=== PATIENT | female | born 1990 | race Caucasian/White ===

== ENCOUNTER 2016-10-09 15:11 | Emergency (ER) | payer OTHER ==
[2016-10-09 15:26] VITALS: BP 124/61
--- NOTE | 2016-10-09 15:32 | UC ---
Ear Complaint HPI - HPI Summary HPI Summary: Well this morning, with development of left ear ache this morning, sore throat, and off and on dizziness and lightheadedness. Not describing vertigo. No diplopia. Has sharp pain in the left ear and a sore throat. Has felt hoarse, no cough. No tinnitus. Headache in the temples to the occiput. No fever. No meds used. Here because of concern that she has an otitis, has a physical fitness test pending in 2 days. - History of Current Complaint Chief Complaint: UCGeneralIllness Stated Complaint: DIZZY SORE THROAT LEFT EAR Time Seen by Provider: 10/09/16 15:30 Hx Obtained From: Patient Hx Last Menstrual Period: 09/14/16 Onset/Duration: Gradual Onset, Lasting Hours - about 6 hours. Severity Initially: Mild Severity Currently: Mild Pain Intensity: 2 Pain Scale Used: 0-10 Numeric Aggravating Factors: Nothing Alleviating Factors: Nothing Associated Signs/Symptoms: Negative: Hearing Loss, Trauma to Ear Related History: Seasonal Allergies - uses loratidine prn - Allergies/Home Medications Allergies/Adverse Reactions: Allergies Allergy/AdvReac Type Severity Reaction Status Date / Time Morphine and Related Allergy Intermediate Hives Verified 10/09/16 15:26 Sulfa Drugs Allergy Intermediate Rash Verified 10/09/16 15:26 Home Medications: Home Medications SUMAtriptan TAB* [Imitrex TAB*] 25 mg PO SEE INSTRUCTIONS PRN 10/09/16 [History Confirmed 10/09/16] PMH/Surg Hx/FS Hx/Imm Hx Endocrine History Of: Denies: Diabetes, Thyroid Disease, Hyperthyroidism, Hypothyroidism, Dyslipidemia Cardiovascular History Of: Denies: Cardiac Disorders, Hypertension, Pacemaker/ICD, Myocardial Infarction , Congestive Heart Failure, Atrial Fibrillation, Deep Vein Thrombosis, Bleeding Disorders Respiratory History Of: Denies: COPD, Asthma, Bronchitis, Pneumonia, Pulmonary Embolism GI/ History Of: Denies: Gastroesophageal Reflux, Ulcer, Gastrointestinal Bleed, Gall Bladder Disease, Kidney Stones, Diverticulitis, Renal Disease, Urosepsis Neurological History Of: Reports: Migraine Psychological History Of: Reports: Anxiety, Depression - taking fluoxetine x 2 years with good effect. Cancer History Of: Denies: Lung Cancer, Colorectal Cancer, Breast Cancer, Prostate Cancer, Cervical Cancer Other History Of: Negative For: Anticoagulant Therapy - Surgical History Surgical History: None - Family History Known Family History: Positive: Diabetes - Maternal grandmother, Other - MS- sister - Social History Occupation: Employed Full-time Lives: With Family - boyfriend Alcohol Use: None Substance Use Type: None Smoking Status (MU): Never Smoked Tobacco When Did the Patient Quit Smoking/Using Tobacco: 2011 - Immunization History Most Recent Influenza Vaccination: none Review of Systems Constitutional: Fatigue Skin: Negative Eyes: Blurred Vision - mild ENT: Negative Respiratory: Negative Cardiovascular: Negative Gastrointestinal: Negative Genitourinary: Negative Motor: Negative Neurovascular: Negative Musculoskeletal: Negative Neurological: Headache - has a little bit of headache. Hx of migraine, does get a scotoma, maybe having a little bit. Psychological: Negative All Other Systems Reviewed And Are Negative: Yes Physical Exam Triage Information Reviewed: Yes Appearance: Well-Appearing, Well-Nourished Vital Signs: Initial Vital Signs Temp 98.2 F 10/09/16 15:22 Pulse 82 10/09/16 15:22 Resp 16 10/09/16 15:22 BP 124/61 10/09/16 15:22 Pulse Ox 100 10/09/16 15:22 Vital Signs Reviewed: Yes Eye Exam: Normal Eyes: Positive: Conjunctiva Clear ENT: Positive: Hearing grossly normal, Pharynx normal, TM dull - left serous fluid, no erythema. Neck: Positive: Supple, Nontender, No Lymphadenopathy Respiratory: Positive: Lungs clear, Normal breath sounds Cardiovascular: Positive: RRR, No Murmur Musculoskeletal Exam: Normal Neurological: Positive: Alert, Muscle Tone Normal, Other: - CN II-XII normal, without nystagmus. No pronator drift, no past pointing with finger to nose touching. Normal gait, negative Romberg. Psychological Exam: Normal Skin Exam: Normal Ear Complaint Course/Dx - Course Course Of Treatment: resume fluticasone to help with serous otitis media. - Differential Dx/Diagnosis Differential Diagnosis/HQI/PQRI: Cerumen Impaction, Otitis Media, URI Provider Diagnoses: serous otitis media/ uri Discharge - Discharge Plan Condition: Stable Disposition: HOME Patient Education Materials: Serous Otitis Media (ED) Forms: *Work Release Additional Instructions: As reviewed, you can try to ease the symptoms by resuming use of Flonase, which I suggest that you use twice today. Pseudoephedrine 30mg once or twice daily might help. Use ibuprofen 600mg for sore throat and headache. Follow up if symptoms persist.
== END 2016-10-09 16:09 | disposition home or self-care (01) ==
LOC: UCCORT 15:11
DX: H65.92 Unspecified nonsuppurative otitis media, left ear (principal); J06.9 Acute upper respiratory infection, unspecified; Z88.5 Allergy status to narcotic agent; Z88.2 Allergy status to sulfonamides
CPT/HCPCS: 99211; G0463

== ENCOUNTER 2016-11-23 11:38 | Emergency (ER) | payer OTHER ==
[2016-11-23 12:00] VITALS: BP 111/57
--- NOTE | 2016-11-23 12:23 | UC ---
Throat Pain/Nasal [place] HPI - HPI Summary HPI Summary: The patient comes in today for: 1. Sinus pressure, sore throat, otalgia, headache, nausea: Onset: 8 days ago. Palliative/provocative: Quality: Ache Region: Frontal headache. Severity:2/10 Time: Constant. Associated symptoms: Rhinitis: None. Cough: None. Upper tooth pain: None. "I don't have strep throat--it is not that bad." Fevers: None. * - History of Current Complaint Chief Complaint: UCRespiratory Stated Complaint: SINUS Time Seen by Provider: 11/23/16 12:18 Hx Obtained From: Patient Hx Last Menstrual Period: 11/11/16 - Allergies/Home Medications Allergies/Adverse Reactions: Allergies Allergy/AdvReac Type Severity Reaction Status Date / Time Morphine and Related Allergy Intermediate Hives Verified 11/23/16 11:49 Sulfa Drugs Allergy Intermediate Rash Verified 11/23/16 11:49 Home Medications: Home Medications Control Med 1 tab DAILY 11/23/16 [History Confirmed 11/23/16] Fluticasone NASAL SPRAY 50MCG* [Flonase NASAL SPRAY 50MCG*] 1 spray DAILY [History Confirmed 11/23/16] PMH/Surg Hx/FS Hx/Imm Hx Previously Healthy: No Endocrine History Of: Denies: Diabetes, Thyroid Disease, Hyperthyroidism, Hypothyroidism, Dyslipidemia Cardiovascular History Of: Denies: Cardiac Disorders, Hypertension, Pacemaker/ICD, Myocardial Infarction , Congestive Heart Failure, Atrial Fibrillation, Deep Vein Thrombosis, Bleeding Disorders Respiratory History Of: Denies: COPD, Asthma, Bronchitis, Pneumonia, Pulmonary Embolism GI/ History Of: Denies: Gastroesophageal Reflux, Ulcer, Gastrointestinal Bleed, Gall Bladder Disease, Kidney Stones, Diverticulitis, Renal Disease, Urosepsis Neurological History Of: Reports: Migraine Denies: TIA, CVA, Dementia, Seizures Psychological History Of: Reports: Anxiety, Depression - taking fluoxetine x 2 years with good effect. Cancer History Of: Denies: Lung Cancer, Colorectal Cancer, Breast Cancer, Prostate Cancer, Cervical Cancer Other History Of: Negative For: HIV, Hepatitis B, Hepatitis C, Anticoagulant Therapy - Surgical History Surgical History: Yes Surgery Procedure, Year, and Place: [place] teeth - Family History Known Family History: Positive: Diabetes - Maternal grandmother, Other - MS- sister Negative: Hypertension - Social History Occupation: Employed Full-time Alcohol Use: None Substance Use Type: None Smoking Status (MU): Never Smoked Tobacco When Did the Patient Quit Smoking/Using Tobacco: 2011 - Immunization History Most Recent Influenza Vaccination: NONE Most Recent Tetanus Shot: Unk Most Recent Pneumonia Vaccination: NONE Review of Systems Constitutional: Negative Skin: Negative Eyes: Negative ENT: Sore Throat Respiratory: Negative Cardiovascular: Negative Gastrointestinal: Negative Genitourinary: Negative All Other Systems Reviewed And Are Negative: Yes Physical Exam Triage Information Reviewed: Yes Appearance: Well-Appearing, No Pain Distress, Well-Nourished Vital Signs: Initial Vital Signs Temp 98.2 F 11/23/16 11:51 Pulse 74 11/23/16 11:51 Resp 18 11/23/16 11:51 BP 111/57 11/23/16 11:51 Pulse Ox 99 11/23/16 11:51 Vital Signs Reviewed: Yes Eyes: Positive: Conjunctiva Clear. Negative: Discharge ENT: Positive: Hearing grossly normal, Other: - Minimal sinus (frontal and maxillary sinus) pressure sensitivity.. Negative: Pharyngeal erythema, Nasal congestion, Nasal drainage, TM bulging, TM dull, TM red, Tonsillar swelling, Tonsillar exudate Dental: Negative: Gross Decay/Caries @, Dental Fracture @ Neck: Positive: Supple, Nontender, No Lymphadenopathy. Negative: Nuchal Rigidity Respiratory: Positive: Lungs clear, No respiratory distress, No accessory muscle use. Negative: Crackles, Wheezing Cardiovascular: Positive: RRR, No Murmur Abdomen Description: Positive: Nontender, No Organomegaly, Soft. Negative: Distended, Guarding Musculoskeletal: Positive: Strength Intact, ROM Intact Neurological: Positive: Alert, Muscle Tone Normal Psychological: Positive: Age Appropriate Behavior, Consolable Skin: Negative: rashes, breakdown Throat Pain/Nasal Course/Dx - Differential Dx/Diagnosis Differential Diagnosis/HQI/PQRI: Influenza, Pharyngitis, Sinusitis Provider Diagnoses: Viral syndrome. Viral pharyngitis. Headache Discharge - Discharge Plan Condition: Stable Disposition: HOME Patient Education Materials: Viral Syndrome (ED), Pharyngitis (ED), General Headache (ED) Referrals: No Primary Care Phys,NOPCP [Primary Care Provider] - 1 Week (Please see your primary care provider in about a week. If you don't have a primary care provider, please reference the included sheet of local provider. If you get worse, please be seen sooner.)
[2016-11-24 12:04] LABS: Manual Entry Verification MR; Mono Internal Control QC Line Present
== END 2016-11-23 13:05 | disposition home or self-care (01) ==
LOC: UCCORT 11:38
DX: B34.9 Viral infection, unspecified (principal); J02.9 Acute pharyngitis, unspecified; R51 Headache; F41.8 Other specified anxiety disorders; Z88.5 Allergy status to narcotic agent; Z88.2 Allergy status to sulfonamides; Z87.891 Personal history of nicotine dependence
CPT/HCPCS: 36415; 86308; 99212; G0463

== ENCOUNTER 2017-06-18 10:45 | Emergency (ER) | payer OTHER ==
[2017-06-18 11:03] VITALS: BP 114/72
--- NOTE | 2017-06-18 11:54 | UC ---
Ear Complaint HPI - HPI Summary HPI Summary: 26 year old female with ear pain. 1- c/o loose stool, and FUENTES x 2 weeks and now stool improved . no fever,. no abdominal pain 2- ear pain bilateral that started last week- worsened past 2 days. has had sinus surgery in the past [address] conway and was feeling well until now. no sinus pressure at this time. no fever. [ End ] - History of Current Complaint Chief Complaint: UCGI Stated Complaint: BILATERAL PAIN Time Seen by Provider: 06/18/17 11:19 Hx Obtained From: Patient Hx Last Menstrual Period: 05/28/17 Onset/Duration: Gradual Onset Severity Initially: Mild Severity Currently: Moderate Related History: Prior ENT Surgery - Allergies/Home Medications Allergies/Adverse Reactions: Allergies Allergy/AdvReac Type Severity Reaction Status Date / Time Morphine and Related Allergy Intermediate Hives Verified 06/18/17 10:57 Sulfa Drugs Allergy Intermediate Rash Verified 06/18/17 10:57 PMH/Surg Hx/FS Hx/Imm Hx Previously Healthy: Yes Other History Of: Negative For: HIV, Hepatitis B, Hepatitis C, Anticoagulant Therapy - Surgical History Surgical History: Yes Surgery Procedure, Year, and Place: [place] teeth. septum straightened - Family History Known Family History: Positive: Diabetes - Maternal grandmother, Other - MS- sister Negative: Hypertension - Social History Occupation: Employed Full-time Alcohol Use: None Substance Use Type: None Smoking Status (MU): Never Smoked Tobacco When Did the Patient Quit Smoking/Using Tobacco: 2011 - Immunization History Most Recent Influenza Vaccination: NONE Most Recent Tetanus Shot: Unk Most Recent Pneumonia Vaccination: NONE Review of Systems Constitutional: Fatigue ENT: Ear Ache, Nasal Discharge, Sinus Congestion Respiratory: Cough Gastrointestinal: Diarrhea, Nausea Neurological: Headache All Other Systems Reviewed And Are Negative: Yes Physical Exam Triage Information Reviewed: Yes Appearance: Well-Appearing, No Pain Distress, Well-Nourished Vital Signs: Initial Vital Signs Temp 98.3 F 06/18/17 10:58 Pulse 86 06/18/17 10:58 Resp 18 06/18/17 10:58 BP 114/72 06/18/17 10:58 Pulse Ox 100 06/18/17 10:58 Vital Signs Reviewed: Yes Eye Exam: Normal ENT Exam: Normal ENT: Positive: Nasal congestion, TM bulging - b/l serous no injection Dental Exam: Normal Neck exam: Normal Neck: Positive: 1 Respiratory Exam: Normal Respiratory: Positive: Chest non-tender, Lungs clear, Normal breath sounds, No respiratory distress Cardiovascular Exam: Normal Abdomen Description: Positive: Nontender, No Organomegaly, Soft. Negative: Bruit, CVA Tenderness (R), CVA Tenderness (L), Distended, Guarding Musculoskeletal Exam: Normal Neurological Exam: Normal Psychological Exam: Normal Skin Exam: Normal Ear Complaint Course/Dx - Course Course Of Treatment: viral illness. increase PO intake. supportive treatment. RTO if any concerns - Differential Dx/Diagnosis Differential Diagnosis/HQI/PQRI: Otitis Externa, Otitis Media, Perforated TM, TMJ Syndrome, URI Provider Diagnoses: URI / diarrhea Discharge - Discharge Plan Condition: Good Disposition: HOME Patient Education Materials: Otitis Media (ED), Acute Diarrhea (ED) Forms: *Work Release Referrals: No Primary Care Phys,NOPCP [Primary Care Provider] - 4 Days (if not improved )
== END 2017-06-18 12:05 | disposition home or self-care (01) ==
LOC: UCCORT 10:45
DX: J06.9 Acute upper respiratory infection, unspecified (principal); R19.7 Diarrhea, unspecified; Z88.5 Allergy status to narcotic agent; Z88.2 Allergy status to sulfonamides
CPT/HCPCS: 99212; G0463

== ENCOUNTER 2017-08-03 14:17 | Emergency (ER) | payer OTHER ==
[2017-08-03 14:35] VITALS: BP 112/63
--- NOTE | 2017-08-03 14:39 | UC ---
Respiratory Complaint HPI - HPI Summary HPI Summary: 26 y/o female presents to the urgent care c/o dry cough, nasal congestion, body aches, chills, FUENTES for the past 3 days. Pt states yellowish nasal discharge. Sore throat and FUENTES is 7/10. She has taking Dayquill PO to alleviate symptoms. She didn't have the flu vaccine last year. Pt states she had a little of confuion this morning at work. she couldn't concentrate. Pt denies fever, SOB, chest pain, abdominal pain, N/V/D - History of Current Complaint Chief Complaint: UCGeneralIllness Stated Complaint: COUGH SORE THROAT CONGESTION Time Seen by Provider: 08/03/17 14:38 Hx Obtained From: Patient Hx Last Menstrual Period: 07/21/17 Onset/Duration: Gradual Onset, Lasting Days - 3 days, Still Present Timing: Constant Severity Initially: Mild Severity Currently: Moderate Pain Intensity: 7 - FUENTES, sore throat Pain Scale Used: 0-10 Numeric Character: Cough: Nonproductive Aggravating Factors: Nothing Alleviating Factors: OTC Meds Associated Signs And Symptoms: Positive: Chills, URI, Nasal Congestion, Sinus Discomfort - Risk Factors Pulmonary Embolism Risk Factors: Negative Cardiac Risk Factors: Negative Pseudomonas Risk Factors: Negative Tuberculosis Risk Factors: Negative - Allergies/Home Medications Allergies/Adverse Reactions: Allergies Allergy/AdvReac Type Severity Reaction Status Date / Time Morphine and Related Allergy Intermediate Hives Verified 08/03/17 14:35 Sulfa Drugs Allergy Intermediate Rash Verified 08/03/17 14:35 Home Medications: Home Medications Desogestrel-Ethinyl Estradiol [Velivet 0.1/0.125/0.15 -0.025 mg] 1 hi PO DAILY 08/03/17 [History Confirmed 08/03/17] PMH/Surg Hx/FS Hx/Imm Hx Previously Healthy: Yes Respiratory History: Asthma Other History Of: Negative For: HIV, Hepatitis B, Hepatitis C, Anticoagulant Therapy - Surgical History Surgical History: Yes Surgery Procedure, Year, and Place: [place] teeth. septum straightened - Family History Known Family History: Positive: Diabetes - Maternal grandmother Negative: Hypertension Family History: MS- sister, dyslipidemia - Social History Occupation: Employed Full-time Lives: With Family Alcohol Use: None Substance Use Type: None Smoking Status (MU): Never Smoked Tobacco When Did the Patient Quit Smoking/Using Tobacco: 2011 - Immunization History Most Recent Influenza Vaccination: NONE Most Recent Tetanus Shot: Unk Most Recent Pneumonia Vaccination: NONE Review of Systems Constitutional: Chills, Other - body aches Skin: Negative Eyes: Negative ENT: Sore Throat, Nasal Discharge, Sinus Congestion Respiratory: Cough - dry Cardiovascular: Negative Gastrointestinal: Negative Genitourinary: Negative Motor: Negative Neurovascular: Negative Musculoskeletal: Negative Neurological: Headache Psychological: Negative Is Patient Immunocompromised?: No All Other Systems Reviewed And Are Negative: Yes Physical Exam Triage Information Reviewed: Yes Vital Signs: Initial Vital Signs Temp 98.5 F 08/03/17 14:31 Pulse 91 08/03/17 14:31 Resp 16 08/03/17 14:31 BP 112/63 08/03/17 14:31 Pulse Ox 99 08/03/17 14:31 - Additional Comments VITAL SIGNS: Reviewed. GENERAL: Patient is a well developed and nourished female who is sitting comfortable in the examining table. Patient is not in any acute respiratory distress. HEAD AND FACE: No signs of trauma. No ecchymosis, hematomas or skull depressions. No sinus tenderness. EYES: PERRLA, EOMI x 2, No injected conjunctiva, no nystagmus. No photophobia. EARS: Hearing grossly intact. Ear canals and tympanic membranes are within normal limits. Nose: edematous, erythematous nasal mucosa with yellowish nasal discharge MOUTH: Positive pharynx with erythema, no exudates, no palatal petechiae. NO B /L tonsillar enlargement with exudate. Uvula in midline. NECK: Supple, trachea is midline, Positive anterior cervical lymphadenopathy, no JVD, no carotid bruit, no c-spine tenderness, neck with full ROM. No meningeal signs, no Kernig's or brudzinskis signs. CHEST: Symmetric, no tenderness at palpation LUNGS: Clear to auscultation bilaterally. No wheezing or crackles. CVS: Regular rate and rhythm, S1 and S2 present, no murmurs or gallops appreciated. ABDOMEN: Soft, non-tender. No signs of distention. No rebound no guarding, and no masses palpated. Bowel sounds are normal. EXTREMITIES: FROM in all major joints, no edema, no cyanosis or clubbing. NEURO: Alert and oriented x 3. No acute neurological deficits. Speech is normal and follows commands. SKIN: Dry and warm UC Diagnostic Evaluation - Laboratory O2 Sat by Pulse Oximetry: 99 Respiratory Course/Dx - Course Course Of Treatment: 26 y/o female presents to the urgent care c/o dry cough, nasal congestion, body aches, chills, FUENTES for the past 3 days. Pt states yellowish nasal discharge. Sore throat and FUENTES is 7/10. She has taking Dayquill PO to alleviate symptoms. She didn't have the flu vaccine last year. Pt states she had a little of confuion this morning at work. she couldn't concentrate. Pt denies fever, SOB, chest pain, abdominal pain, N/V/D. Hx obtained. Pt with a pharygitis on examination. Pt declines Rapid strep since she can't handle the test. Influenza A&B ordered: result: negative. Rx ibuprofen PO to alleviates symptoms. Advised on hand washing. Pt advised to rest, increase fluid intake, eat well and avoid strenuous exercise. If symptoms do not improve or worsen advised to return to the urgent care or f/u with her PCP for further evaluation and treatment. Pt understood and agreed with plan of care. - Differential Dx/Diagnosis Differential Diagnosis/HQI/PQRI: Asthma, Bronchitis, Influenza, Laryngitis, Lower Resp Infection, Sinusitis Provider Diagnoses: 1- Acute viral pharyngitis Discharge - Discharge Plan Condition: Stable Disposition: HOME Prescriptions: Ibuprofen TAB* [Motrin TAB* 800 MG] 800 mg PO Q6H PRN #20 tab PRN Reason: Sore Throat Patient Education Materials: Pharyngitis (ED) Forms: *Work Release Referrals: [facility] [Outside] - If Needed Additional Instructions: 1-Please take ibuprofen PO q6-8hrs prn as instructed after meals to alleviate pain and swelling. Increase fluid intake, eat well, rest and avoid strenuous exercise 2-If symptoms do not improve or worsen please return to the urgent care or f/u with your PCP for further evaluation and treatment.
== END 2017-08-03 15:39 | disposition home or self-care (01) ==
LOC: UCCORT 14:17
DX: J45.909 Unspecified asthma, uncomplicated (principal); J11.1 Influenza due to unidentified influenza virus with other respiratory manifestations; J22 Unspecified acute lower respiratory infection
CPT/HCPCS: 87502; 99212; G0463

== ENCOUNTER 2017-08-11 13:00 | Emergency (ER) | payer OTHER ==
[2017-08-11 15:14] VITALS: BP 121/71
--- NOTE | 2017-08-11 15:27 | UC ---
Throat Pain/Nasal [place] HPI - HPI Summary HPI Summary: 26 y/o female presents to the urgent care c/o sinus congestion and sinus pain w / FUENTES for the past week. Pt reports symptoms started w/ nasal congestion w/ clear discharge. Now it is green w/ sore throat, +PND and B/L ear pain. Pain is 7/10. She has taking Ibuprofen PO to alleviate symptom. Pt denies dizziness , fever, SOB, cough , chest pain, abdominal pain, N/V/D - History of Current Complaint Chief Complaint: UCGeneralIllness Stated Complaint: SINUS EARS HEADACHE Time Seen by Provider: 08/11/17 15:06 Hx Obtained From: Patient Hx Last Menstrual Period: 07/31/17 Onset/Duration: Gradual Onset, Lasting Weeks - 1, Still Present, Worse Since - yesterday Severity: Moderate Pain Intensity: 7 Pain Scale Used: 0-10 Numeric Cough: None Associated Signs & Symptoms: Positive: Sinus Discomfort, Nasal Discharge. Negative: Fever - Epiglottits Risk Factors Epiglottis Risk Factors: Negative - Allergies/Home Medications Allergies/Adverse Reactions: Allergies Allergy/AdvReac Type Severity Reaction Status Date / Time MS Morphine and Related Allergy Intermediate Hives Verified 08/11/17 15:14 [Morphine and Related] MS Sulfa Drugs [Sulfa Drugs] Allergy Intermediate Rash Verified 08/11/17 15:14 PMH/Surg Hx/FS Hx/Imm Hx Previously Healthy: Yes Respiratory History: Asthma Psychological History: Depression Other History Of: Negative For: HIV, Hepatitis B, Hepatitis C, Anticoagulant Therapy - Surgical History Surgical History: Yes Surgery Procedure, Year, and Place: [place] teeth. septum straightened - Family History Known Family History: Positive: Diabetes - Maternal grandmother Negative: Hypertension Family History: MS- sister, dyslipidemia - Social History Occupation: Employed Full-time Lives: With Family Alcohol Use: None Substance Use Type: None Smoking Status (MU): Never Smoked Tobacco When Did the Patient Quit Smoking/Using Tobacco: 2011 - Immunization History Most Recent Influenza Vaccination: NONE Most Recent Tetanus Shot: Unk Most Recent Pneumonia Vaccination: NONE Review of Systems Constitutional: Negative Skin: Negative Eyes: Negative ENT: Ear Ache - B/L ear pain, Nasal Discharge, Sinus Congestion, Sinus Pain/ Tenderness Respiratory: Negative Cardiovascular: Negative Gastrointestinal: Negative Genitourinary: Negative Motor: Negative Neurovascular: Negative Musculoskeletal: Negative Neurological: Headache Psychological: Negative Is Patient Immunocompromised?: No All Other Systems Reviewed And Are Negative: Yes Physical Exam Triage Information Reviewed: Yes Vital Signs: Initial Vital Signs Temp 99.1 F 08/11/17 15:10 Pulse 81 08/11/17 15:10 Resp 16 08/11/17 15:10 BP 121/71 08/11/17 15:10 Pulse Ox 99 08/11/17 15:10 - Additional Comments Vitals: reviewed General: Well developed, well-nourished female patient with NAD. Head and face: Normocephalic and atraumatic, Positive tenderness over the frontal and maxillary sinuses.. Eyes: PERRLA, EOMI x 2. Normal conjunctiva. No eye discharge. ENT: Ears and TM with normal limits. Nose: with yellowish discharge and erythematous mucosa. Pharynx with erythema , no exudate. Neck: Supple, no JVD, no carotid bruits and no lymphadenopathy. Lungs: clear, no rales, no rhonchi, no wheezes. CVS: RRR, S1 and S2 present no murmurs or gallops appreciated. Abdomen: soft nontender with positive bowel sounds. Extremities: no edema noted. Neuro: WNL. Skin: warm and dry Throat Pain/Nasal Course/Dx - Course Course Of Treatment: 26 y/o female presents to the urgent care c/o sinus congestion and sinus pain w/ FUENTES for the past week. Pt reports symptoms started w / nasal congestion w/ clear discharge. Now it is green w/ sore throat, +PND and B/L ear pain. Pain is 7/10. She has taking Ibuprofen PO to alleviate symptom. Pt denies dizziness, fever, SOB, cough , chest pain, abdominal pain, N/ V/D. Hx obtained. Pt with sinusitis on examination. Pt with 1 week of symptoms getting worse. Pt Rx augmentin PO and flonase nasal spray. Naproxen PO for FUENTES. Discharge instructions explained to Pt. Advised to Return to the clinic or PCP if symptoms do not improve.Pt understood and agreed with plan of care. - Differential Dx/Diagnosis Differential Diagnosis/HQI/PQRI: Laryngitis, Pharyngitis, Sinusitis, Tonsillitis , URI Provider Diagnoses: 1- Acute bacterial sinusitis. 2- Headache Discharge - Discharge Plan Condition: Stable Disposition: HOME Prescriptions: Amoxicillin/Clavulanate TAB* [Augmentin TAB 875*] 875 mg PO BID #20 tab Fluticasone NASAL SPRAY 50MCG* [Flonase NASAL SPRAY 50MCG*] 2 spray BOTH NARES DAILY #1 btl Naproxen [Naproxen 500 mg] 500 mg PO Q8H PRN #20 tab PRN Reason: Pain Patient Education Materials: Sinusitis (ED) Referrals: [facility] [place] [facility]ERRAL [Outside] - 1 Week Additional Instructions: 1- Please increase fluid intake and rest. take full course of antibiotic to avoid resistance 2-Use Flonase as directed to help drain fluid. Also buy saline drops to clear sinuses 3-Take Naproxen PO as directed after meals to alleviates Headache 4-Return to the clinic or PCP if symptoms do not improve for further management and treatment
== END 2017-08-11 15:39 | disposition home or self-care (01) ==
LOC: UCCORT 13:00
DX: J01.90 Acute sinusitis, unspecified (principal); R51 Headache; J45.909 Unspecified asthma, uncomplicated; F32.9 Major depressive disorder, single episode, unspecified; Z88.5 Allergy status to narcotic agent; Z88.2 Allergy status to sulfonamides; Z87.891 Personal history of nicotine dependence
CPT/HCPCS: 99212; G0463

== ENCOUNTER 2018-08-30 07:46 | Emergency (ER) | payer OTHER ==
[2018-08-30 09:03] LABS: ABS Basophils 0 10^3/ul (0-0.2); ABS Eosinophils 0.1 10^3/ul (0-0.6); ABS Lymphocytes 1.5 10^3/ul (1.0-4.8); ABS Monocytes 0.4 10^3/ul (0-0.8); ABS Neutrophils 3.9 10^3/ul (1.5-7.7); ABS Nucleated RBC 0 10^3/ul; Eosinophil % 1.5 %; Hematocrit 39 % (35-47); Hemoglobin 12.6 g/dl (12.0-16.0); Lymphocyte % 25.3 %; Mean Corpuscular HGB Conc 33 g/dl (31-36); Mean Corpuscular Hemoglobin 28 pg (27-31); Mean Corpuscular Volume 85 fL (80-97); Mean Platelet Volume 7.8 fL (7.4-10.4); Nucleated Red Blood Cells % 0; Platelet Count 351 10^3/ul (150-450); Red Blood Count 4.56 10^6/ul (4.00-5.40); Red Cell Distribution Width 13 % (10.5-15)
[2018-08-30 09:09] LABS: INR 0.81 (0.77-1.02)
[2018-08-30 09:24] LABS: Albumin/Globulin Ratio 1.3 (1-3); BUN/Creatinine Ratio 18.8 (8-20); Calcium 9.1 mg/dL (8.6-10.3); EGFR African American 121.7 (>60); EGFR Non-African American 100.6 (>60); Globulin 3.1 g/dL (2-4); Potassium 3.9 mmol/L (3.5-5.0); Total Bilirubin 0.3 mg/dL (0.2-1.0); Total Protein 7.1 g/dL (6.4-8.9)
[2018-08-30 09:51] VITALS: BP 121/64
--- NOTE | 2018-08-30 10:35 | ED ---
Neurological HPI - HPI Summary HPI Summary: Patient has been an otherwise healthy 27-year-old female who presents to the ED with worsening condition of blurry vision, pins and needles to her bilateral lower and upper extremities as well as pins and needles to her or head. She endorses gait disturbance and balance problems. She has diffuse backaches and body aches which she has been seeing a chiropractor for the past 5 months without relief. She endorses worsening aches to the bilateral lower extremities and back compared to other parts of her body. She denies any recent illness. She does endorse a new symptom of R orbital FUENTES which has been present despite Tylenol x 2 days. She states despite receiving new glasses, she continues to have visual blurriness without blindness. Denies grayness to her vision. She denies any feelings of shock-like pain to the midline of her back but endorses aches to the back. Sister with hx of MS. She has had an MRI about 2 years ago for diffuse FUENTES, but negative. Hx of depression and anxiety. Tearful on exam. - History of Current Complaint Chief Complaint: EDGeneral Stated Complaint: GENERAL Time Seen by Provider: 08/30/18 08:00 Hx Obtained From: Patient Hx Last Menstrual Period: 07/31/17 Onset/Duration: Sudden Onset Timing: Constant Onset Severity: Mild Current Severity: Mild Seizure Severity: Mild Neurological Deficit Location: Generalized Headache Location: Diffuse (Right) - Right orbital Pain Intensity: 5 Pain Scale Used: 0-10 Numeric Character: Sharp, Numbness/Tingling, Paresthesia, Visual Changes, Other: - Not worst headache of life Associated Signs and Symptoms: Positive: Unsteady Gait, Visual Changes, Headache , Weakness. Negative: Memory Loss, Confusion, Agitation, Loss of Consciousness - Allergy/Home Medications Allergies/Adverse Reactions: Allergies Allergy/AdvReac Type Severity Reaction Status Date / Time morphine Allergy Hives Verified 08/30/18 07:58 Sulfa (Sulfonamide Allergy Rash Verified 08/30/18 07:58 Antibiotics) Home Medications: Home Medications Omeprazole 20 mg PO DAILY 08/30/18 [History Confirmed 08/30/18] PMH/Surg Hx/FS Hx/Imm Hx Previously Healthy: Yes Endocrine/Hematology History: Denies: Hx Anticoagulant Therapy, Hx Diabetes, Hx Thyroid Disease Cardiovascular History: Denies: Hx Congestive Heart Failure, Hx Deep Vein Thrombosis, Hx Hypertension , Hx Myocardial Infarction, Hx Pacemaker/ICD Respiratory History: Denies: Hx Asthma, Hx Chronic Obstructive Pulmonary Disease (COPD), Hx Lung Cancer, Hx Pneumonia, Hx Pulmonary Embolism GI History: Denies: Hx Gall Bladder Disease, Hx Gastrointestinal Bleed, Hx Ulcer, Hx Urosepsis History: Denies: Hx Kidney Stones, Hx Renal Disease Sensory History: Denies: Hx Hearing Aid Neurological History: Reports: Hx Migraine Denies: Hx Dementia, Hx Seizures, Hx Transient Ischemic Attacks (TIA) Psychiatric History: Reports: Hx Anxiety, Hx Depression - taking fluoxetine x 2 years with good effect. Denies: Hx Panic Disorder - Surgical History Surgery Procedure, Year, and Place: [place] teeth. septum straightened - Immunization History Hx Pertussis Vaccination: No Immunizations Up to Date: Yes Infectious Disease History: No Infectious Disease History: Denies: Traveled Outside the [place] in Last 30 Days - Family History Known Family History: Positive: Diabetes - Maternal grandmother, Other - MS- sister Negative: Hypertension Family History: MS- sister, dyslipidemia - Social History Occupation: Employed Full-time Lives: With Family Alcohol Use: None Hx Substance Use: No Substance Use Type: Reports: None Smoking Status (MU): Never Smoked Tobacco Review of Systems Constitutional: Negative Negative: Fever, Chills, Fatigue, Skin Diaphoresis Positive: Blurred Vision. Negative: Diplopia, Drainage, Erythema Negative: Sore Throat, Ear Ache Negative: Palpitations, Chest Pain Negative: Shortness Of Breath, Cough Positive: see HPI Positive: Paresthesia, Numbness Positive: Anxious All Other Systems Reviewed And Are Negative: Yes Physical Exam Triage Information Reviewed: Yes Vital Signs On Initial Exam: Initial Vitals Temp Pulse Resp BP Pulse Ox 98.6 F 99 17 135/82 98 08/30/18 07:54 08/30/18 07:54 08/30/18 07:54 08/30/18 07:54 08/30/18 07:54 Vital Signs Reviewed: Yes Appearance: Positive: Well-Appearing, Well-Nourished Skin: Positive: Warm, Skin Color Reflects Adequate Perfusion Head/Face: Positive: Normal Head/Face Inspection Eyes: Positive: EOMI, JUSTIN, Conjunctiva Clear Neck: Positive: Supple, No Lymphadenopathy Respiratory/Lung Sounds: Positive: Clear to Auscultation, Breath Sounds Present Cardiovascular: Positive: Normal, Pulses are Symmetrical in both Upper and Lower Extremities. Negative: Leg Edema Left, Leg Edema Right Musculoskeletal: Positive: Normal, Strength/ROM Intact Neurological: Positive: Sensory/Motor Intact, Alert, Oriented to Person Place, Time, CN Intact II-III, Reflexes Intact, Normal Gait, Heel to Toe - Intact, Finger to Nose - Intact, Facial Symmetry, Other - No pronator drift. Negative: Disoriented Psychiatric: Positive: Anxious AVPU Assessment: Alert - [place] Coma Scale Best Eye Response: 4 - Spontaneous Best Motor Response: 6 - Obeys Commands Best Verbal Response: 5 - Oriented Coma Scale Total: 15 Diagnostics - Vital Signs Vital Signs Temp Pulse Resp BP Pulse Ox 08/30/18 10:08 98.4 F 82 16 121/64 98 08/30/18 09:50 12 121/64 08/30/18 09:20 82 16 118/75 97 08/30/18 09:00 85 22 97 08/30/18 08:51 98 08/30/18 08:50 88 4 131/74 99 08/30/18 07:54 98.6 F 99 17 135/82 98 - Laboratory Lab Results: Lab Results 08/30/18 08/30/18 08/30/18 Range/Units 08:52 08:52 08:52 WBC 6.0 (3.5-10.8) 10^3/ul RBC 4.56 (4.00-5.40) 10^6/ul Hgb 12.6 (12.0-16.0) g/dl Hct 39 (35-47) % MCV 85 (80-97) fL MCH 28 (27-31) pg MCHC 33 (31-36) g/dl RDW 13 (10.5-15) % Plt Count 351 (150-450) 10^3/ul MPV 7.8 (7.4-10.4) fL Neut % (Auto) 64.9 % Lymph % (Auto) 25.3 % Conway % (Auto) 7.5 % Eos % (Auto) 1.5 % Baso % (Auto) 0.8 % Absolute Neuts (auto) 3.9 (1.5-7.7) 10^3/ul Absolute Lymphs (auto) 1.5 (1.0-4.8) 10^3/ul Absolute Monos (auto) 0.4 (0-0.8) 10^3/ul Absolute Eos (auto) 0.1 (0-0.6) 10^3/ul Absolute Basos (auto) 0 (0-0.2) 10^3/ul Absolute Nucleated RBC 0 10^3/ul Nucleated RBC % 0 INR (Anticoag Therapy) 0.81 (0.77-1.02) Sodium 137 (135-145) mmol/L Potassium 3.9 (3.5-5.0) mmol/L Chloride 104 (101-111) mmol/L Carbon Dioxide 25 (22-32) mmol/L Anion Gap 8 (2-11) mmol/L BUN 13 (6-24) mg/dL Creatinine 0.69 (0.51-0.95) mg/dL Est GFR ( Amer) 121.7 (>60) Est GFR (Non-Af Amer) 100.6 (>60) BUN/Creatinine Ratio 18.8 (8-20) Glucose 95 (70-100) mg/dL Lactic Acid (0.5-2.0) mmol/L Calcium 9.1 (8.6-10.3) mg/dL Total Bilirubin 0.30 (0.2-1.0) mg/dL AST 16 (13-39) U/L ALT 21 (7-52) U/L Alkaline Phosphatase 55 (34-104) U/L Troponin I 0.00 (<0.04) ng/mL Total Protein 7.1 (6.4-8.9) g/dL Albumin 4.0 (3.2-5.2) g/dL Globulin 3.1 (2-4) g/dL Albumin/Globulin Ratio 1.3 (1-3) Vitamin B12 (180-914) pg/mL 08/30/18 08/30/18 Range/Units 08:52 08:52 WBC (3.5-10.8) 10^3/ul RBC (4.00-5.40) 10^6/ul Hgb (12.0-16.0) g/dl Hct (35-47) % MCV (80-97) fL MCH (27-31) pg MCHC (31-36) g/dl RDW (10.5-15) % Plt Count (150-450) 10^3/ul MPV (7.4-10.4) fL Neut % (Auto) % Lymph % (Auto) % Conway % (Auto) % Eos % (Auto) % Baso % (Auto) % Absolute Neuts (auto) (1.5-7.7) 10^3/ul Absolute Lymphs (auto) (1.0-4.8) 10^3/ul Absolute Monos (auto) (0-0.8) 10^3/ul Absolute Eos (auto) (0-0.6) 10^3/ul Absolute Basos (auto) (0-0.2) 10^3/ul Absolute Nucleated RBC 10^3/ul Nucleated RBC % INR (Anticoag Therapy) (0.77-1.02) Sodium (135-145) mmol/L Potassium (3.5-5.0) mmol/L Chloride (101-111) mmol/L Carbon Dioxide (22-32) mmol/L Anion Gap (2-11) mmol/L BUN (6-24) mg/dL Creatinine (0.51-0.95) mg/dL Est GFR ( Amer) (>60) Est GFR (Non-Af Amer) (>60) BUN/Creatinine Ratio (8-20) Glucose (70-100) mg/dL Lactic Acid 1.1 (0.5-2.0) mmol/L Calcium (8.6-10.3) mg/dL Total Bilirubin (0.2-1.0) mg/dL AST (13-39) U/L ALT (7-52) U/L Alkaline Phosphatase (34-104) U/L Troponin I (<0.04) ng/mL Total Protein (6.4-8.9) g/dL Albumin (3.2-5.2) g/dL Globulin (2-4) g/dL Albumin/Globulin Ratio (1-3) Vitamin B12 247 (180-914) pg/mL Result Diagrams: 08/30/18 08:52 08/30/18 08:52 Lab Statement: Any lab studies that have been ordered have been reviewed, and results considered in the medical decision making process. Course/Dx - Course Course Of Treatment: Patient has been an otherwise healthy 27-year-old female who presents to the ED with worsening condition of blurry vision, pins and needles to her bilateral lower and upper extremities as well as pins and needles to her or head. She endorses gait disturbance and balance problems. She has diffuse backaches and body aches which she has been seeing a chiropractor for the past 5 months without relief. She endorses worsening aches to the bilateral lower extremities and back compared to other parts of her body. She denies any recent illness. She does endorse a new symptom of R orbital FUENTES which has been present despite Tylenol x 2 days. She states despite receiving new glasses, she continues to have visual blurriness without blindness. Denies grayness to her vision. She denies any feelings of shock- like pain to the midline of her back but endorses aches to the back ( negative Lhermittes sign). 4.On physical examination, there is no obvious gait imbalance or disturbance noted. No slurred speech. No dysphagia, dysarthria or any respiratory dysfunction. Reflexes intact. Good strength bilaterally. Patchy areas of increased pain with light touch perception in bilateral lower and upper extremities. Neuro exam completed and WNL. Neuro exam shows noopthalmoplegia . EOMI, SILVANA. No nystagmus bilaterally. Finger to nose intact. Heel to yuan intact. No pronator drift bilaterally, no asymmetries to pin prick cold or light touch. There is no evidence of neglect to double simultaneous stimulation of touch to the bilateral upper and lower arms. Discussed case with Dr. Lino who recommends further evaluation as an outpatient and may need further workup). As this patient has had symptoms intermittently x 6-12 mos (except for pain behind R eye and diffuse pins and needles sensation), this unlikely for a workup at this time to assess MS. Vitamin B 12 obtained and is WNL. Other labs all WNL. EKG shows NSR. I have discussed all results with patient. She is tearful and states she wants answers. I have agreed to discuss this case further with Dr. Ball as patient does not currently have a PCP. Called Dr. Ball at 10am to make aware that patient may be calling for a f/u in the [facility] clinic. I have also offered to patient medications, note for work, all to which she declines. She states she will f/u in the clinic. She is stable on discharge. - Differential Dx Differential Diagnoses Neuro: Positive: Other - Anxiety, paresthesias, MS, orbital headache - Diagnoses Provider Diagnoses: Paresthesia Discharge - Sign-Out/Discharge Documenting (check all that apply): Patient Departure Patient Received Moderate/Deep Sedation with Procedure: No - Discharge Plan Condition: Stable Disposition: HOME Patient Education Materials: Paresthesia (ED) Forms: *Work Release Referrals: [facility] [Outside] No Primary Care Phys,NOPCP [Primary Care Provider] - Additional Instructions: Please follow up with Dr. Ball or Dr. Crabtree in our [facility] group - Billing Disposition and Condition Condition: STABLE Disposition: Home
== END 2018-08-30 10:08 | disposition home or self-care (01) ==
LOC: ED 07:46
DX: R20.2 Paresthesia of skin (principal); F32.9 Major depressive disorder, single episode, unspecified; F41.9 Anxiety disorder, unspecified
CPT/HCPCS: 36415; 80053; 82607; 83605; 84484; 85025; 85610; 93005; 99282

== ENCOUNTER 2018-10-13 08:10 | Emergency (ER) | payer BC ==
[2018-10-13] MEDS ORDERED: Ondansetron INJ* 2 MG/ML VIAL IV ONE (08:35)
[2018-10-13] MEDS ORDERED: Pantoprazole IV* 40 MG IV ONE (08:35)
--- NOTE | 2018-10-13 08:37 | ED ---
GI/ HPI - HPI Summary HPI Summary: Pt is a 27 y/o F presenting to the ED with a chief complaint of abd pain. She reports bright red blood in her stool this morning, with associated nausea, subjective fever, shakey, and abd pain in the epigastric region described as burning. She denies hemorrhoids or straining when having a bowel movement. She has a hx of PUD, but these sx are not c/w her nml ulcer sx. - History of Current Complaint Chief Complaint: EDGIBleed Time Seen by Provider: 10/13/18 08:26 Stated Complaint: BLOOD IN STOOL/HAS AN ULSER PER PT Hx Obtained From: Patient Hx Last Menstrual Period: 07/31/17 Onset/Duration: Started Hours Ago, Still Present Timing: Constant, Lasting Hours Severity: Moderate Current Severity: Moderate Pain Intensity: 6 Location of Pain: Epigastric Pain Characteristics: Burning Associated Signs and Symptoms: Positive: Nausea, Bright Red Blood w/Stool, Fever , Abdominal Pain, Other: - shakey. Negative: External Hemorrhoids Aggravating Factor(s): Nothing Alleviating Factor(s): Nothing - Allergy/Home Medications Allergies/Adverse Reactions: Allergies Allergy/AdvReac Type Severity Reaction Status Date / Time morphine Allergy Hives Verified 10/13/18 08:24 Sulfa (Sulfonamide Allergy Rash Verified 10/13/18 08:24 Antibiotics) PMH/Surg Hx/FS Hx/Imm Hx Previously Healthy: Yes Endocrine/Hematology History: Denies: Hx Anticoagulant Therapy, Hx Diabetes, Hx Thyroid Disease Cardiovascular History: Denies: Hx Congestive Heart Failure, Hx Deep Vein Thrombosis, Hx Hypertension , Hx Myocardial Infarction, Hx Pacemaker/ICD Respiratory History: Denies: Hx Asthma, Hx Chronic Obstructive Pulmonary Disease (COPD), Hx Lung Cancer, Hx Pneumonia, Hx Pulmonary Embolism GI History: Reports: Hx Ulcer Denies: Hx Gall Bladder Disease, Hx Gastrointestinal Bleed, Hx Urosepsis History: Denies: Hx Kidney Stones, Hx Renal Disease Sensory History: Denies: Hx Hearing Aid Neurological History: Reports: Hx Migraine Denies: Hx Dementia, Hx Seizures, Hx Transient Ischemic Attacks (TIA) Psychiatric History: Reports: Hx Anxiety, Hx Depression - taking fluoxetine x 2 years with good effect., Hx Panic Disorder - ANXIETY - Surgical History Surgery Procedure, Year, and Place: [place] teeth. septum straightened Infectious Disease History: No Infectious Disease History: Denies: Traveled Outside the [place] in Last 30 Days - Family History Known Family History: Positive: Diabetes - Maternal grandmother, Other - MS- sister Negative: Hypertension Family History: MS- sister, dyslipidemia - Social History Alcohol Use: None Hx Substance Use: No Substance Use Type: Reports: None Hx Tobacco Use: No Smoking Status (MU): Never Smoked Tobacco Review of Systems Positive: Fever, Other - shakey Gastrointestinal: Negative - hemorrhoids, straining with bowel movement Positive: Abdominal Pain, Nausea, Other - bright red blood in stool All Other Systems Reviewed And Are Negative: Yes Physical Exam - Summary Physical Exam Summary: VITAL SIGNS: Reviewed. GENERAL: Patient is a well-developed and nourished female who is lying comfortable in the stretcher. Patient is not in any acute respiratory distress. HEAD AND FACE: Normocephalic and atraumatic. EYES: PERRLA, EOMI x 2, No injected conjunctiva. EARS: Hearing grossly intact. Ear canals and tympanic membranes are WNL. MOUTH: Oropharynx within normal limits. NECK: Supple, trachea is midline, no adenopathy, no JVD. CHEST: Symmetric, no tenderness at palpation LUNGS: Clear to auscultation bilaterally. No wheezing or crackles. CVS: RRR, S1 and S2 present, no murmurs or gallops appreciated. ABDOMEN: Epigastric tenderness. No signs of distention. Positive bowel sounds. No rebound no guarding, and no masses palpated. No abdominal bruit or pulsations. EXTREMITIES: FROM in all major joints, no edema, no cyanosis or clubbing. NEURO: Alert and oriented x 3. No acute neurological deficits. Speech is normal. SKIN: Dry and warm Rectal: No hemorrhoids, gross blood, or melena. Triage Information Reviewed: Yes Vital Signs On Initial Exam: Initial Vitals Temp Pulse Resp BP Pulse Ox 99.6 F 114 17 118/93 100 10/13/18 08:20 10/13/18 08:20 10/13/18 08:20 10/13/18 08:20 10/13/18 08:20 Vital Signs Reviewed: Yes Diagnostics - Vital Signs Vital Signs Temp Pulse Resp BP Pulse Ox 10/13/18 08:20 99.6 F 114 17 118/93 100 - Laboratory Result Diagrams: 10/13/18 08:45 10/13/18 08:45 Lab Statement: Any lab studies that have been ordered have been reviewed, and results considered in the medical decision making process. Re-Evaluation - Re-Evaluation 1st re-eval Re-Evaluation Time: 10:40 Change: Improved Comment: The pt is doing much better and will be d/c'ed with a dx of epigastric pain and rectal bleeding. GIGU Course/Dx - Course Assessment/Plan: Patient is a 27-year-old female who presents to the emergency department with a chief complaint of epigastric burning and a rectal bleed. Rectal exam shows no gross blood or melena. Occult blood test is negative. Blood work without any significant abnormality. In the ED course, the patient was given IV fluids, Zofran for nausea and Protonix for the epigastric pain. After these medications were given the patients symptoms have significantly improved. The patient reports that her symptoms are resolved. She was instructed to return to the emergency department if she develops any other symptoms. The patient understands and agrees. - Diagnoses Provider Diagnoses: Epigastric pain, Rectal bleeding Discharge - Sign-Out/Discharge Documenting (check all that apply): Patient Departure Patient Received Moderate/Deep Sedation with Procedure: No - Discharge Plan Condition: Stable Disposition: HOME Prescriptions: Pantoprazole TAB * [Protonix TAB*] 40 mg PO DAILY #14 tab Referrals: Priscilla Crabtree DO [Primary Care Provider] - Additional Instructions: Please follow up with your GI doctor within the next 3 days. Return to the ED with any new or worsening symptoms. - Billing Disposition and Condition Condition: STABLE Disposition: Home - Attestation Statements Document Initiated by Harriettibe: Yes Documenting Scribe: Veda Cooley Provider For Whom Nixon is Documenting (Include Credential): Ras Reynolds MD. Scribe Attestation: Veda Vernon scribed for Ras Reynolds MD. on 10/13/18 at 1740. Scribe Documentation Reviewed: Yes Provider Attestation: The documentation as recorded by the Veda aguillon accurately reflects the service I personally performed and the decisions made by , Ras Reynolds MD. Status of Scribe Document: Viewed
--- OUTSIDE RECORDS SUMMARY | 2018-10-13 08:58 | XMS REPORT | Continuity of Care Document ---
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 [facility] Primary Care Physician Unavailable Payers Date Identification Numbers Payment Provider Subscriber Effective: 2018 Policy Number: [id number] [employer] Rebecca Longo PayID: [id number] [address] [address] [place] [address] Expires: 2016 Policy Number: [id number] Medicaid Rebecca Longo Group Name: 1 1 [address] PayID: [id number] [place] [address] Expires: 2018 Policy Number: [id number] Yobany Rebecca Longo Group Number: [id number] [address] PayID: [id number] [place] [address] Advance Directives Description No Information Available Problems Date Description Provider Status Onset: 11/29/2015 Migraine Waldo Lino M.D. 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 [employer] ETOH Use Denies alcohol use Recreational Drug Use Denies Drug Use Tobacco Use Start: Unknown End: Patient is a former smoker Unknown Smoking Status Reviewed: 09/27/18 Patient is a former smoker Exercise Type/Frequency Does not exercise Allergies, Adverse Reactions, Alerts Date Description Reaction Status Severity Comments 11/23/2015 Sulfa Active 11/23/2015 Morphine Active 09/16/2018 Ibuprofen Active stomach ulcer Medications Medication Date Status Form Strength Qnty SIG Indications Ordering Provider Cyanocobalamin 09/27 Active Solution 1000mcg/M 1ml 1000 mcg D51.9 L intramuscular Senner, monthly x 2 DO months Nitrofurantoin 09/27 Active Capsules 100mg 10cap take one twice R30.0 Priscilla Macrocrystal s a day [place], DO Propranolol HCL 09/16 Active Tablets 10mg 240ta Not Taking--1 G43.109 bs by mouth twice [place], a day for 1 M.D. week then 2 twice a day for 1 week then 3 twice a day for 1 week then 4 twice a day Cyanocobalamin 08/30 Active Solution 1000mcg/M 1ml 1000 mcg D51.9 L intramuscular [place], weekly x 4 DO weeks Velivet Active Tablets 0.1/0.125 as directed Unknown /0000 /0.15 -0.025 mg Fluoxetine HCL Active Tablets 60mg take one Unknown /0000 tablet by mouth one time daily [facility] Active Capsules 20mg one time daily Unknown Esomeprazole /0000 DR Magnesium Tums Active Chewtabs 500mg 2 tabs by Unknown /0000 mouth twice daily Acetaminophen Active Tablets 500mg 4 tabs by Unknown Extra Strength /0000 mouth every 8 hours as needed for pain or fever. Amerge Active Tablets 1mg take 1 at Unknown /0000 start of headache, november repeat x1 in 2 hours, no more than 2 in 24 hours, 2 times a week Naratriptan HCL 09/20 Hx Tablets 1mg 9tabs 1 po prn migraine, november [place], - repeat once M.D. 09/20 after 4 hours if no relief, no more than 2 days a week Relpax 09/20 Hx Tablets 40mg 10tab 1 tab by mouth G43.109 s twice a day as [place], - needed max 2 M.D. 03/17 days per week Almotriptan 09/17 Hx Tablets 6.25mg 9tabs 1 po bid prn migraine max 2 [place], - days a week M.D. 03/11 /2019 Relpax 09/16 Hx Tablets 40mg 10tab 1 tab by mouth G43.109 Waldo S. /2018 s twice a day as [place], - needed max 2 M.D. 09/17 days per week Onetouch Delica 09/02 Hx Misc 30G 100un test sugar Priscilla Lancets Fine its daily as [place], 30G - needed for DO 09/15 symptoms of hypoglycemia Freestyle 09/02 Hx Strips 25uni test sugar as Priscilla Precision Jair ts needed daily [place], Blood Glucose - for symptoms DO Test Strips 09/15 hypoglycemia Amitriptyline 11/28 Hx Tablets 10mg 60tab take 1 tablets G43.109 Waldo S. HCL s every night at [place], - bedtime for 2 M.D. 02/19 weeks take 2 tablets at bedtime Fluoxetine HCL 00 Hx Capsules 40mg 1 by mouth Unknown /0000 every day - 02/20 Sumatriptan Hx Tablets 100mg 1 tab twice a Unknown Succinate /0000 day max 2 days - a week 11/27 Vitamin D Hx Capsules 2000Unit 1 by mouth Unknown /0000 every day - 08/23 Medications Administered in Office Medication Date Status Form Strength Qnty SIG Indications Ordering Provider B12 Provided Administered Injection Fletcher Ball, By Patient 019 B12 Provided Administered Injection Priscilla By Patient 019 DO Bro B12 Provided Administered Injection Priscilla By Patient 019 DO Bro Immunizations Description No Information Available Vital Signs Date Vital Result Comment 09/27/2018 8:35am Weight 167.00 lb Heart Rate 80 /min BP Systolic 118 mmHg BP Diastolic 68 mmHg Respiratory Rate 16 /min Body Temperature 99.3 F Pain Level 4 headache O2 % BldC Oximetry 98 % 09/16/2018 2:13pm Height 69 inches 5'9" Weight 168.00 lb Heart Rate 86 /min BP Systolic Sitting 122 mmHg BP Diastolic Sitting 78 mmHg Respiratory Rate 12 /min no respiratory difficulites Pain Level 4 O2 % BldC Oximetry 98 % BMI (Body Mass Index) 24.8 kg/m2 08/30/2018 10:37am Height 69 inches 5'9" Weight 172.50 lb Heart Rate 97 /min BP Systolic Sitting 118 mmHg reg adult cuff left arm BP Diastolic Sitting 80 mmHg reg adult cuff left arm Respiratory Rate 16 /min O2 % BldC Oximetry 98 % at rest on room air BMI (Body Mass Index) 25.5 kg/m2 02/21/2016 3:40pm Height 69 inches 5'9" Weight 163.00 lb Heart Rate 78 /min BP Systolic Sitting 138 mmHg BP Diastolic Sitting 70 mmHg BMI (Body Mass Index) 24.1 kg/m2 11/29/2015 10:15am Height 69 inches 5'9" Weight 160.00 lb Heart Rate 80 /min BP Systolic Sitting 126 mmHg BP Diastolic Sitting 78 mmHg BMI (Body Mass Index) 23.6 kg/m2 Results Test Date Facility Test Result H/L Range Note Urinalysis Profile 09/27/2018 [facility] Urine Color Straw [address] [place] [address] [phone] Urine Appearance Clear Urine Specific [place] 1.003 Low 1.010-1.030 Urine pH 7.0 N 5-9 Urine Urobilinogen Negative Negative Urine Ketones Negative Negative Urine Protein Negative Negative Urine Leukocytes Negative Negative Urine Blood 1+ Abnormal Negative Urine Nitrite Negative Negative Urine Bilirubin Negative Negative Urine Glucose Negative Negative Urine White Blood Cell Trace(0-5/hpf) Absent Urine Red Blood Cell Absent Absent Urine Bacteria Absent Absent Urine Squamous Epithelial Cell Present Abnormal Absent Urine Culture And 09/27/2018 [facility] Urine Culture SEE RESULT [address] [place] [address] [phone] 1 SEE RESULT BELOW Name: REBECCA LONGO : [address]: Priscilla Crabtree DO Acct: [id number] Unit: [id number] AGE: 27 Location: [facility] Re09/27/18 SEX: F Status: REG REF SPEC: [id number] NOEMY: 09/27/[address]: Priscilla Crabtree DO REQ: [id number] RECD: 09/27/18 STATUS: COMP _ SOURCE: URINE SPDESC: ORDERED: Urine Culture QUERIES: Urine Source: Random Procedure Result Reported Site Urine Culture Final 09/28/1846 ML Mixed tara; possible contamination. Suggest resubmission. * ML - Main Lab . END OF REPORT DEPARTMENT OF PATHOLOGY, [address] [place] [address] Johnson Barrett M.D. Director [facility] # [id number] Procedures Date Code Description Status 09/13/2018 88543 Admin Of Inj Completed Encounters Type Date Location Provider Dx Diagnosis Office Visit 08/30/2018 [facility] Priscilla Crabtree D51.9 Vitamin B12 10:40a [facility] DO deficiency anemia, unspecified R20.2 Paresthesia of skin [facility] G43.109 Migraine with 3:45p Neurologic Serv Of Myesha Lino aura, not [facility] intractable, w/o status migrainosus F41.9 Anxiety disorder, unspecified Office Visit 11/29/2015 [facility] Waldo Crandall G43.109 Migraine with 10:00a Neurologic Serv Of Myesha Lino aura, 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 at [facility] Neurologic [facility]09/27/2018 - Priscilla Crabtree DOR30.0 DysuriaNew Medication:Nitrofurantoin Macrocrystal 100 mg - take one twice a dayD51.9 Vitamin B12 deficiency anemia, unspecifiedNew Medication: Cyanocobalamin 1000 mcg/ML - 1000 mcg intramuscular monthly x 2 [id number] Migraine with aura, not intractable, without status migrainoRecommendations: stop the propranolol
[2018-10-13 08:59] LABS: ABS Basophils 0.1 10^3/ul (0-0.2); ABS Eosinophils 0.1 10^3/ul (0-0.6); ABS Lymphocytes 1.4 10^3/ul (1.0-4.8); ABS Monocytes 0.4 10^3/ul (0-0.8); ABS Neutrophils 2.6 10^3/ul (1.5-7.7); ABS Nucleated RBC 0 10^3/ul; Eosinophil % 2.6 %; Hematocrit 37 % (33-41); Hemoglobin 12.4 g/dL (12.0-16.0); Lymphocyte % 30.9 %; Mean Corpuscular HGB Conc 34 g/dL (31-36); Mean Corpuscular Hemoglobin 28 pg (27-31); Mean Corpuscular Volume 83 fL (80-97); Mean Platelet Volume 7.5 fL (7.4-10.4); Nucleated Red Blood Cells % 0.1; Platelet Count 335 10^3/uL (150-450); Red Blood Count 4.48 10^6 /uL (3.70-4.87); Red Cell Distribution Width 13 % (10.5-15); White Blood Count 4.7 10^3/uL (3.5-10.8)
--- OUTSIDE RECORDS SUMMARY | 2018-10-13 08:59 | XMS REPORT | Continuity of Care Document ---
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 [facility] Primary Care Physician Unavailable Payers Date Identification Numbers Payment Provider Subscriber Expires: 2016 Policy Number: [id number] Medicaid Rebecca Longo Group Name: 1 1 [address] PayID: [id number] [place] [address] Policy Number: [id number] Yobany Rebecca Longo Group Number: [id number] [address] PayID: [id number] [place] [address] Advance Directives Description No Information Available Problems [...] With partner 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 [employer] 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 Use Denies alcohol use Recreational Drug Use Denies Drug Use Tobacco Use Start: Unknown End: Patient is a former smoker Unknown Smoking Status Reviewed: 09/16/18 Patient is a former smoker Exercise Type/Frequency Does not exercise Allergies, Adverse Reactions, Alerts Date Description Reaction Status Severity Comments 11/23/2015 Sulfa Active 11/23/2015 Morphine Active 09/16/2018 Ibuprofen Active stomach ulcer Medications Medication Date Status Form Strength Qnty SIG Indications Ordering Provider Relpax 09/16 Active Tablets 40mg 10tab 1 tab by mouth G43.109 s twice a day as [place], needed max 2 M.D. days per week Propranolol HCL 09/16 Active Tablets 10mg 240ta 1 by mouth G43.109 bs twice a day [place], for 1 week M.D. then 2 twice a day for 1 week then 3 twice a day for 1 week then 4 twice a day Cyanocobalamin 08/30 Active Solution 1000mcg/M 1ml 1000 mcg D51.9 L intramuscular [place], weekly x 4 DO weeks Velivet Active Tablets 0.1/0.125 as directed Unknown /0000 /0.15 -0.025 mg Fluoxetine HCL Active Tablets 60mg take one Unknown tablet by mouth one time daily [facility] Active Capsules 20mg one time daily Unknown Esomeprazole DR Magnesium Tums Active Chewtabs 500mg 2 tabs by Unknown /0000 mouth twice daily Acetaminophen Active Tablets 500mg 4 tabs by Unknown Extra Strength /0000 mouth every 8 hours as needed for pain or fever. Onetouch Delica 09/02 Hx Misc 30G 100un test sugar Priscilla Nettles its daily as Bro, 30G - needed for DO 09/15 symptoms hypoglycemia Freestyle 09/02 Hx Strips 25uni test sugar as Priscilla Precision Jair ts needed daily Bro Blood Glucose - for symptoms DO Test Strips 09/15 hypoglycemia Amitriptyline 11/28 Hx Tablets 10mg 60tab take 1 tablets G43.109 . s every night at [place], - bedtime for 2 M.D. 02/19 weeks take 2 tablets at bedtime Fluoxetine HCL Hx Capsules 40mg 1 by mouth Unknown /0000 every day - 02/20 Sumatriptan Hx Tablets 100mg 1 tab twice a Unknown Succinate / day max 2 days - a week 11/27 Vitamin D Hx Capsules 2000Unit 1 by mouth Unknown /0000 every day - 08/23 Medications Administered in Office Medication Date Status Form Strength Qnty SIG Indications Ordering Provider B12 Provided Administered Injection Priscilla By Patient 019 Bro, DO B12 Provided Administered Injection Priscilla By Patient 019 DO Bro Immunizations Description No Information Available Vital Signs Date Vital Result Comment 09/16/2018 2:13pm Height 69 inches 5'9" Weight [...] BMI (Body Mass Index) 23.6 kg/m2 Results Description No Information Available Procedures Date Code Description Status 09/13/2018 89203 Admin Of Inj Completed Encounters Type Date Location Provider Dx Diagnosis Office Visit 08/30/2018 [facility] Priscilla Bro, D51.9 Vitamin B12 10:40a [facility] DO deficiency anemia, unspecified R20.2 Paresthesia of skin [facility] G[facility].109 Migraine with 3:45p Neurologic Serv Elissa Lino M.D. aura, not Hoist Worker intractable, w/o status migrainosus F41.9 Anxiety disorder, unspecified [facility] G43.109 Migraine with 10:00a Neurologic Serv Of Myesha Lino aura, not Hoist Worker intractable, w/o status migrainosus R20.2 Paresthesia of skin Plan of Treatment Future Appointment(s):12/30/2018 3:30 pm - Waldo Lino M.D. at [facility]09/20/2018 1:20 pm - Fletcher Ball MD at [facility]09/27/2018 8:20 am - Priscilla Crabtree DO at [facility]09/16/2018 - Waldo Lino M.D.G43.109 Migraine with aura, not intractable, without status migrainoNew Medication:Relpax 40 mg - 1 tab by mouth twice a day as needed max 2 days per weekPropranolol HCL 10 mg - 1 by mouth twice a day for 1 week then 2 twice a day for 1 week then 3 twicea day for 1 week then 4 twice a dayFollow up:Please obtain [facility] over the past month. 2-3 MONTHSRecommendations:Follow up with Dr. Crabtree.D51.9 Vitamin B12 deficiency anemia, [id number] Paresthesia of skin
--- OUTSIDE RECORDS SUMMARY | 2018-10-13 08:59 | XMS REPORT | Continuity of Care Document ---
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 [facility] Primary Care Physician Unavailable Payers Date Identification Numbers Payment Provider Subscriber Effective: 2018 Policy Number: [id number] [employer] Rebecca Longo PayID: [id number] [address] [address] [place] [address] Expires: 2016 Policy Number: [id number] Medicaid Rebecca Longo Group Name: 1 1 [address] PayID: [id number] [place] [address] Expires: 2018 Policy Number: [id number] [place] Rebecca Longo Group Number: [id number] [address] PayID: [id number] [place] [address] Advance Directives Description No Information Available Problems [...] 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 week then [...] Waldo S. HCL s every night at [place], - bedtime for 2 M.D. 02/19 weeks [...] Available Procedures Date Code Description Status 09/13/2018 81312 Admin Of Inj Completed Encounters Type Date Location Provider Dx Diagnosis Office Visit 08/30/2018 [facility] Priscilla Crabtree, D51.9 Vitamin B12 10:40a [facility] deficiency anemia, unspecified R20.2 Paresthesia of skin Office Visit 02/21/2016 [facility] Waldo Crandall G43.109 Migraine with 3:45p Neurologic Serv Of Myesha Lino aura, not Office Services Specialist intractable, w/o status migrainosus F41.9 Anxiety disorder, unspecified Office Visit 11/29/2015 [facility] Waldo Crandall G43.109 Migraine with 10:00a Neurologic Serv Of Myesha Lino aura, not Office Services Specialist intractable, w/o status migrainosus R20.2 Paresthesia of skin Plan of Treatment Future Appointment(s):09/30/2018 1:20 pm - Priscilla Crabtree DO at [facility]12/30/2018 3:30 pm - Waldo Lino M.D. at [facility]09/27/2018 - Priscilla Crabtree DOR30.0 DysuriaNew Medication:Nitrofurantoin Macrocrystal 100 mg - take one twice a dayD51.9 Vitamin B12 deficiency anemia, unspecifiedNew Medication: Cyanocobalamin 1000 mcg/ML - 1000 mcg intramuscular monthly x 2 [id number] Migraine with aura, not intractable, without status migrainoRecommendations: stop the propranolol
[2018-10-13 09:13] LABS: ALT 15 U/L (7-52); AST 19 U/L (13-39); Albumin 3.9 g/dL (3.2-5.2); Albumin/Globulin Ratio 1.3 (1-3); Alkaline Phosphatase 54 U/L (34-104); Anion Gap 6 mmol/L (2-11); Blood Urea Nitrogen 9 mg/dL (6-24); C Reactive Protein 6.09 mg/L (<8.01); CO2 Carbon Dioxide 24 mmol/L (22-32); Calcium 9.1 mg/dL (8.6-10.3); Chloride 106 mmol/L (101-111); EGFR African American 121.7 (>60); EGFR Non-African American 100.6 (>60); Globulin 2.9 g/dL (2-4); Glucose 90 mg/dL (70-100); Potassium 3.9 mmol/L (3.5-5.0); Sodium 136 mmol/L (135-145); Total Protein 6.8 g/dL (6.4-8.9)
[2018-10-13 09:17] LABS: HCG Pregnancy < 0.60 mIU/mL
[2018-10-13 09:35] LABS: Urine Appearance Clear; Urine Bilirubin Negative (Negative); Urine Blood Negative (Negative); Urine Color Straw; Urine Glucose Negative (Negative); Urine Ketones Negative (Negative); Urine Nitrite Negative (Negative); Urine Protein Negative (Negative); Urine Specific Gravity 1.002 (1.010-1.030); Urine Urobilinogen Negative (Negative)
[2018-10-13 11:24] VITALS: BP 122/72
== END 2018-10-13 11:23 | disposition home or self-care (01) ==
LOC: ED 08:10
DX: R10.13 Epigastric pain (principal); K62.5 Hemorrhage of anus and rectum; Z88.2 Allergy status to sulfonamides; Z88.5 Allergy status to narcotic agent
CPT/HCPCS: 36415; 80053; 81003; 82272; 83605; 83690; 84702; 85025; 86140; 96374; 96375; 99282; J2405

== ENCOUNTER 2019-09-26 12:47 | Emergency (ER) | payer BC ==
[2019-09-26 13:46] VITALS: BP 112/66
--- NOTE | 2019-09-26 14:15 | UC ---
Respiratory Complaint HPI - HPI Summary HPI Summary: 28 year old female with h/o asthma presents with fever 99.4 highest x 3 days, intermittently, mild cough, mild shortness of breath. Has been using rescue inhaler about once a day. Denies shortness of breath, chills, sore throat, sinus pain. Possible b/l ear fullness. no lightheaded, dizziness - History of Current Complaint Chief Complaint: UCRespiratory Stated Complaint: FEVER HX OF ASTHMA SHORTNESS OF BREATH Time Seen by Provider: 09/26/19 14:02 Hx Obtained From: Patient Hx Last Menstrual Period: 07/31/17 ?: No Onset/Duration: Sudden Onset, Lasting Days - 3-4 Timing: Constant Severity Initially: Moderate Severity Currently: Moderate Pain Intensity: 6 Pain Scale Used: 0-10 Numeric Character: Cough: Nonproductive Aggravating Factors: Deep Breaths Alleviating Factors: Bronchodilator - albuterol, has at home - Allergies/Home Medications Allergies/Adverse Reactions: Allergies Allergy/AdvReac Type Severity Reaction Status Date / Time morphine Allergy Hives Verified 09/26/19 13:44 Sulfa (Sulfonamide Allergy Rash Verified 09/26/19 13:44 Antibiotics) Home Medications: Home Medications FLUoxetine CAP* [Prozac CAP*] 60 mg PO QAM 07/23/15 [History Confirmed 10/13/18] Benzonatate CAP* [Tessalon 100 MG CAP*] 100 mg PO TID PRN #60 cap 09/26/19 [Rx] Loratadine 10 mg PO DAILY 09/26/19 [History Confirmed 09/26/19] PMH/Surg Hx/FS Hx/Imm Hx Previously Healthy: No - asthma Other History Of: Negative For: HIV, Hepatitis B, Hepatitis C, Anticoagulant Therapy - Surgical History Surgical History: Yes Surgery Procedure, Year, and Place: [place] teeth. septum straightened. 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 Negative: Chills, Fatigue Respiratory: Positive: Shortness Of Breath, Cough Physical Exam Triage Information Reviewed: Yes Vital Signs: Initial Vital Signs Temp 98.8 F 09/26/19 13:42 Pulse 77 09/26/19 13:42 Resp 16 09/26/19 13:42 BP 112/66 09/26/19 13:42 Pulse Ox 100 09/26/19 13:42 Vital Signs Reviewed: Yes Eyes: Positive: Conjunctiva Clear ENT: Positive: Pharynx normal, TMs normal, Uvula midline. Negative: Pharyngeal erythema, TM bulging, TM dull, TM red, Tonsillar swelling, Tonsillar exudate, Sinus tenderness Neck: Positive: Supple, No Lymphadenopathy, Tenderness @ - minimal submand b/l, no LAD. Negative: Nuchal Rigidity, Enlarged Nodes @ Respiratory: Positive: Chest non-tender, Lungs clear, Normal breath sounds, No respiratory distress, No accessory muscle use. Negative: Respiratory distress, Decreased breath sounds, Crackles, Rhonchi, Stridor, Wheezing, Expiration Cardiovascular: Positive: RRR, No Murmur Psychological Exam: Normal Skin Exam: Normal Respiratory Course/Dx - Course Course Of Treatment: - Increase fluid intake - Tessalon perles as needed for cough - Humidifier at night to help with symptoms - Continue to use albuterol as needed for cough - Differential Dx/Diagnosis Provider Diagnosis: Bronchitis Discharge ED - Sign-Out/Discharge Documenting (check all that apply): Patient Departure All imaging exams completed and their final reports reviewed: No Studies - Discharge Plan Condition: Good Disposition: HOME Prescriptions: Benzonatate CAP* [Tessalon 100 MG CAP*] 100 mg PO TID PRN #60 cap PRN Reason: shortness of breath Patient Education Materials: Acute Bronchitis (ED) Forms: *Work Release Referrals: Nga Mahoney PA [Primary Care Provider] - Additional Instructions: - Increase fluid intake - Tessalon perles as needed for cough - Humidifier at night to help with symptoms - Continue to use albuterol as needed for cough - Billing Disposition and Condition Condition: GOOD Disposition: Home
== END 2019-09-26 14:32 | disposition home or self-care (01) ==
LOC: UCCORT 12:47
DX: J40 Bronchitis, not specified as acute or chronic (principal); Z88.5 Allergy status to narcotic agent; Z88.2 Allergy status to sulfonamides
CPT/HCPCS: 99212; G0463